=== PATIENT | female | born 1945 | race Caucasian/White ===

== ENCOUNTER 2017-05-19 06:41 | Inpatient (IN) | payer MEDICARE, OTHER ==
[~2017-05-19] VITALS: Ht 167.6 cm; Wt 71.8 kg
--- NOTE | ~2017-05-19 | EC ---
PATIENT:AMARI GARCIA DATE OF SERVICE: 05/19/17 SEX: F MEDICAL RECORD: [id number] DATE OF : [birth year] LOCATION:[facility] AGE OF PATIENT: 71 ADMISSION DATE: 05/19/17 REFERRING PHYSICIAN: INTERPRETING PHYSICIAN: KISHORE MONSIVAIS MD ECHOCARDIOGRAM REPORT ECHO CHARGES 4 ECHO COMPLETE CLINICAL DIAGNOSIS: SYNCOPE ECHOCARDIOGRAPHIC MEASUREMENTS (adult normal given) AC root (d.<3.7cm) 3.0 cm LV Septum d (<1.2 cm> 1.2 cm Valve Excursion 1.5 cm LV Septum (systole) 1.8 cm Left Atria (s.<4.0cm> 3.2 cm LVPW d(<1.2cm) 1.3 cm RV (d.<2.3cm) 3.2 cm LVPW (sytole) 2.2 cm LV diastole(<5.6CM) 5.3 cm MV E-F(>70mm/sec) cm LV systole 2.9 cm LVOT Diameter 1.7 cm MV exc.(>10mm) cm Est.ejection fraction (50-75%) % Pericardial Effusion N DOPPLER: LVIT cm/sec A 75.0 cm/sec E 103 cm/sec LA cm/sec RVSP 36.2 mmHg LVOT 149 cm/sec AOP1/2T m/s Asc. Ao 172 cm/sec RVOT 64.0 cm/sec RA cm/sec PA 93.0 cm/sec AV Gradient Peak 12.0 mmHg AV Mean 6.2 mmHg AV Area 2.0 cm MV Gradient Peak 5.1 mmHg MV Mean 2.1 mmHg MV Area cm COMMENTS: Gun Perforator: 1 BETI MARTINEZ Vp Compliance: Makayla Ballesteros TAPE# PACS DATE OF SERVICE: 05/20/2017 PROCEDURE: Echocardiogram. FINDINGS: 1. Left ventricular chamber size is within normal limits. Left ventricular systolic function is normal. Overall ejection fraction estimated at 60%. 2. Left atrium, right atrium and right ventricular chamber sizes are within normal limits. 3. Valvular structures have normal structure and motion. ECHOCARDIOGRAM REPORT [id number] AMARI GARCIA 4. Doppler interrogation reveals moderate mitral regurgitation, mild to moderate tricuspid regurgitation, no other valvular insufficiency or stenosis. Pulmonary systolic pressure is preserved at 36 mmHg. 5. No evidence of pericardial effusion or left ventricular thrombus. TRANSINT:[id number] Voice Confirmation ID: [id number] DOCUMENT ID: [id number] KISHORE MONSIVAIS MD at 1148 CC: [id number] DICTATION DATE: 05/21/17 0947 PULPWOOD DEALER: 05/21/17 1014 DIS IN 05/21/17 [facility] [address] [place] [address]
--- NOTE | ~2017-05-19 | OP ---
PATIENT NAME: AMARI BARROSO MEDICAL RECORD: [id number] :47 LOCATION:[id number] ADMISSION DATE:05/19/17 SURGEON: LUCIANO ARIAS DO DATE OF OPERATION: 05/19/2017 PROCEDURE PERFORMED: Left ankle open reduction and internal fixation. PREOPERATIVE DIAGNOSIS: Left ankle closed bimalleolar fracture dislocation. POSTOPERATIVE DIAGNOSIS: Left ankle closed bimalleolar fracture dislocation. INDICATIONS: Ms. Barroso is a 71-year-old female who passed out this morning and twisted her ankle somehow, she thinks. She was brought in by EMS due to being afraid that she lost pulse in her foot from the ankle fracture and was seen in the ER. Seen to have an ankle fracture, it was bimalleolar with posterolateral dislocation. Had reduced this in the ER and splinted, and the medial malleolus had been tenting the skin. There was pressure on it, so in order to still get quicker treatment, decided to get her ankle fracture done today to avoid any skin problems. The patient was consented for the procedure, where the risks and benefits included damage to nerves and vessels, she is not sure she has peripheral neuropathy, she said; bleeding; need for further surgery; and infection also. She was informed she will be given antibiotics before and after surgery and we will try to control her pain. SURGEON: Luciano Arias DO. She was given a block in the preoperative area by anesthesia. A gram of vancomycin before the procedure began started to run through her IV. TOURNIQUET TIME: 43 minutes. BLOOD LOSS: Approximately 50 mL. COMPLICATIONS: None. The patient was taken to the operative suite, laid in supine position, given general anesthetic. The left lower extremity was prepped and draped in sterile fashion with the tourniquet under the drapes above the knee. Once this was done, a time-out was performed. Everyone was in agreement of correct side, site, and patient. The incision was then marked over the fibula. Careful dissection was made down after the skin was incised to the fibula itself. The fracture was reduced. Plate was put on and pinned. AP and lateral seemed to get into good position and then a shaft screw was put in to hold the plate in place and then we began to lock screws distally. Once this was locked distally, I put another compression screw in the shaft and removed the prior compression screw and put locking screws up on the most 2 proximal holes. Then, one more locking screw was placed just proximal to the fracture site. After this was done, attention was drawn to the medial malleolus. The ankle was reduced nicely and 2 K-wires were placed up through the medial malleolus tip obliquely through the fracture site. We ended up using two 55 cannulated screws on the medial side. This was Biomet plate and screws. Once they were seen to be in good position, the screws were inserted and then a large clamp was used to clamp the ankle together. Due to the fracture dislocation, I decided to put a ZipTight in. The ankle was clamped together with the ankle dorsiflexed and a drill was drilled across the fibula through the plate across the fibula and tibia and OPERATIVE REPORT [id number] RADHAAMARI angled anteriorly to the tibia. The ZipLock was put in. Once this was done, the ZipTight was cinched down and seemed to hold the fibula in very good position and the ankle was well reduced. This was confirmed in AP, mortise, and lateral x-rays. Then, the tourniquet was let down after 43 minutes. The wounds were irrigated. The lateral side was closed with 2-0 Vicryl in an inverted interrupted fashion and then ZipLine was placed on the skin. The medial side with poke holes where the cannulated screw went was closed with 4-0 Monocryl in a horizontal mattress fashion. Once this was done, the foot was cleaned. The ankle was cleaned and then dried. Adaptic, 4 x 4's, and ABD were put around the heel and around the incisions. Then, a cast padding was used to wrap around that and then Kerlix and another layer of cast padding. Then, a splint was placed posteriorly and 6-inch Aces were used to secure the splint. The knee was flexed and the ankle was brought to neutral flexion and placed there while hardened. The patient was awakened and taken to recovery in stable condition. TRANSINT:[id number] Voice Confirmation ID: [id number] DOCUMENT ID: [id number] LUCIANO ARIAS DO at 1144 CC: [id number] DICTATION DATE: 05/19/17 1306 RESOURCE SPECIALIST TEACHER: 05/19/17 1731 ADM IN [facility] [address] [facility], [facility]
[2017-05-19 07:28] LABS: BASOPHILS 0.2 % (0-2); EOSINOPHILS 1.8 % (0-7); HEMOGLOBIN 10.6 g/dL (12-16); IMMATURE GRANULOCYTES 0.2 % (0-5); LYMPHOCYTES 16.9 % (15-50); MCH 29.4 pg (26.0-34.0); MCHC 32.1 g/dL (31.0-37.0); MCV 91.4 fL (80.0-100.0); MEAN PLATELET VOLUME 9.9 fL (7.4-10.4); MONOCYTES 7.5 % (2-11); NEUTROPHILS 73.4 % (40-80); PLATELET COUNT 241 10x3/uL (130-400); RBC 3.61 10x6/uL (4.00-5.40); RDW 12.9 % (11.5-14.5); WBC 9.4 10x3/uL (4.8-10.8)
[2017-05-19 07:37] LABS: APTT 23.5 SECONDS (22.8-39.4); INR 1.04 (0.85-1.17); PROTIME 13.2 SECONDS (11.6-15.0)
[2017-05-19 07:49] LABS: ALBUMIN 3.4 g/dL (3.4-5.0); BILIRUBIN - TOTAL 0.29 mg/dL (0.2-1.3); CALCIUM 8.4 mg/dL (8.5-10.1); CARBON DIOXIDE 27.1 mmol/L (21.0-32.0); CREATININE - SERUM 1.2 mg/dL (0.6-1.3); POTASSIUM - SERUM 4.1 mmol/L (3.5-5.1); PROTEIN - SERUM 6.3 g/dL (6.4-8.2)
[2017-05-19 09:17] VITALS: BP 100/45; BMI 25.5
[2017-05-19 16:12] VITALS: Ht 167.6 cm; Wt 71.8 kg
[2017-05-19 22:00] VITALS: BP 125/60
[2017-05-20 01:42] VITALS: BP 127/58
[2017-05-20 04:32] LABS: BASOPHILS 0 % (0-2); EOSINOPHILS 0 % (0-7); HEMATOCRIT 30.6 % (36.0-48.0); HEMOGLOBIN 9.9 g/dL (12-16); IMMATURE GRANULOCYTES 0.1 % (0-5); LYMPHOCYTES 7.8 % (15-50); MCH 29.6 pg (26.0-34.0); MCHC 32.4 g/dL (31.0-37.0); MCV 91.6 fL (80.0-100.0); MEAN PLATELET VOLUME 10.1 fL (7.4-10.4); MONOCYTES 4.1 % (2-11); PLATELET COUNT 214 10x3/uL (130-400); RBC 3.34 10x6/uL (4.00-5.40); RDW 13.1 % (11.5-14.5); WBC 8.7 10x3/uL (4.8-10.8)
[2017-05-20] MEDS ORDERED: CYMBALTA60 MG PO (04:39)
[2017-05-20] MEDS ORDERED: NEURONTIN 300300 MG PO (04:40)
[2017-05-20] MEDS ORDERED: REQUIP0.25 MG PO (04:41)
[2017-05-20] MEDS ORDERED: BUPROPION XL150 MG PO (04:42)
[2017-05-20] MEDS ORDERED: PRAVACHOL40 MG PO (04:42)
[2017-05-20] MEDS ORDERED: VITAMIN B-121000 MCG PO (04:44)
[2017-05-20] MEDS ORDERED: VITAMIN D250000 UNIT PO (04:44)
[2017-05-20] MEDS ORDERED: FLOMAX0.4 MG PO (04:46)
[2017-05-20 04:49] LABS: CALCIUM 7.9 mg/dL (8.5-10.1); CARBON DIOXIDE 24.3 mmol/L (21.0-32.0); CHLORIDE - SERUM 108 mmol/L (98-107); GLUCOSE 124 mg/dL (74-106); POTASSIUM - SERUM 4.7 mmol/L (3.5-5.1); SODIUM 140 mmol/L (136-145); eGFR NON AFRICAN AMERICAN 75 mL/min (90-120)
[2017-05-20 04:56] LABS: CALC OSMOLALITY 281 mosm/kg (275-300); CREATININE - SERUM 0.8 mg/dL (0.6-1.3); UREA NITROGEN 17 mg/dL (7-18)
[2017-05-20 05:55] VITALS: BP 133/64
[2017-05-20 08:04] VITALS: BP 133/60
[2017-05-20 12:02] VITALS: BP 135/60
[2017-05-20 15:33] VITALS: BP 123/47
[2017-05-20 21:52] VITALS: BP 124/65
[2017-05-21 00:48] VITALS: BP 136/66
[2017-05-21 05:26] LABS: ANION GAP 11.6 mmol/L (8-16); CALCIUM 7.6 mg/dL (8.5-10.1)
[2017-05-21 05:33] VITALS: BP 150/66
[2017-05-21 05:36] LABS: POTASSIUM - SERUM 3.6 mmol/L (3.5-5.1)
[2017-05-21 05:48] LABS: HEMATOCRIT 27.8 % (36.0-48.0); HEMOGLOBIN 9.4 g/dL (12-16); LYMPHOCYTES 22.5 % (15-50); MCH 30.6 pg (26.0-34.0); MCHC 33.8 g/dL (31.0-37.0); MCV 90.6 fL (80.0-100.0); MEAN PLATELET VOLUME 10.3 fL (7.4-10.4); NEUTROPHILS 68.3 % (40-80); PLATELET COUNT 173 10x3/uL (130-400); RBC 3.07 10x6/uL (4.00-5.40); RDW 12.8 % (11.5-14.5); WBC 9.8 10x3/uL (4.8-10.8)
[2017-05-21] MEDS ORDERED: OXYCODONE HCL5 MG PO (07:23)
[2017-05-21] MEDS ORDERED: HYDROXYZINE HCL50 MG PO (07:23)
[2017-05-21] MEDS ORDERED: ELIQUIS2.5 MG PO (07:23)
[2017-05-21 07:54] VITALS: BP 154/75
[2017-05-21 12:29] LABS: APPEARANCE HAZY (CLEAR); BACTERIA FEW /hpf (NONE SEEN); BILIRUBIN NEGATIVE (NEGATIVE); COLOR YELLOW (YELLOW); GLUCOSE NEGATIVE (NEGATIVE); KETONE NEGATIVE (NEGATIVE); NITRITE NEGATIVE (NEGATIVE); PROTEIN NEGATIVE (NEGATIVE); RED CELLS - URINE OCC /hpf (0-5); SPECIFIC GRAVITY 1.015 (1.005-1.020); UROBILINOGEN NORMAL (NORMAL); WHITE CELLS - URINE 0-5 /hpf (0-5); YEAST <1+ /hpf (NONE SEEN)
== END 2017-05-21 13:28 | disposition home or self-care (01) | DRG 493 ==
LOC: D.ER 06:41 → EDBD 06:41 → D.MS 07:49 → EDBD 07:49 → D.SDCHOLD 05-21 11:28 → D.MS 05-21 11:28
PROVIDERS: Emergency Medicine; Internal Medicine Nephrology; Orthopaedic Surgery
PROC: 0QSH04Z Reposition Left Tibia with Internal Fixation Device, Open Approach (ICD-10-PCS; 2017-05-19)
PROC: 0QSK04Z Reposition Left Fibula with Internal Fixation Device, Open Approach (ICD-10-PCS; principal; 2017-05-19 10:00)
DX: S82.842A Displaced bimalleolar fracture of left lower leg, initial encounter for closed fracture (principal); N17.9 Acute kidney failure, unspecified; W18.30XA Fall on same level, unspecified, initial encounter; I10 Essential (primary) hypertension; E78.5 Hyperlipidemia, unspecified; K58.9 Irritable bowel syndrome, unspecified; M79.7 Fibromyalgia; D64.9 Anemia, unspecified

== ENCOUNTER → 2018-12-23 08:51 | Outpatient (CLI) | payer MEDICARE, OTHER ==
[2017-05-19 16:12] VITALS: BMI 25.5
[~2018-12-23 08:51] MED LIST: BUPROPION XL150 MG PO; CYMBALTA60 MG PO; ELIQUIS2.5 MG PO; FLOMAX0.4 MG PO; HYDROXYZINE HCL50 MG PO; NEURONTIN 300300 MG PO; OXYCODONE HCL5 MG PO; PRAVACHOL40 MG PO; REQUIP0.25 MG PO; VITAMIN B-121000 MCG PO; VITAMIN D250000 UNIT PO
--- NOTE | 2018-12-25 09:14 | EC ---
PATIENT:AMARI GARCIA DATE OF SERVICE: 12/23/18 SEX: F MEDICAL RECORD: [id number] DATE OF : [birth year] LOCATION:D[facility] AGE OF PATIENT: 73 ADMISSION DATE: 12/23/18 REFERRING PHYSICIAN: INTERPRETING PHYSICIAN: KISHORE HUNT MD ECHOCARDIOGRAM REPORT ECHO CHARGES 4 ECHO COMPLETE Date: 12/23/18 CLINICAL DIAGNOSIS: HTN HX OF MITRAL/TRICUSPED REGURG ECHOCARDIOGRAPHIC MEASUREMENTS (adult normal given) AC root (d.<3.7cm) 3.0 cm LV Septum d (<1.2 cm> 1.1 cm Valve Excursion 1.5 cm LV Septum (systole) 1.5 cm Left Atria (s.<4.0cm> 3.6 cm LVPW d(<1.2cm) 1.4 cm RV (d.<2.3cm) 3.5 cm LVPW (sytole) 1.7 cm LV diastole(<5.6CM) 4.7 cm MV E-F(>70mm/sec) cm LV systole 2.8 cm LVOT Diameter 2.0 cm MV exc.(>10mm) 1.7 cm Est.ejection fraction (50-75%) % DOPPLER: LVIT cm/sec A 79.0 cm/sec E 54.0 cm/sec LA cm/sec RVSP 18 mmHg LVOT 110 cm/sec AOP1/2T m/s Asc. Ao 134 cm/sec RVOT 89 cm/sec RA cm/sec PA 133 cm/sec AV Gradient Peak 7.21 mmHg AV Mean 3.92 mmHg AV Area 2.7 cm MV Gradient Peak 4.07 mmHg MV Mean 1.24 mmHg MV Area cm COMMENTS: Brass Buffer: Makayla SINHA Beater Out Leveling Machine: 1 Dr. Hunt TAPE# PACS Pericardial Effusion N DATE OF SERVICE: 12/23/2018 FINDINGS: 1. Left ventricular chamber size is within normal limits. Left ventricular systolic function is normal. Overall ejection fraction estimated at 55%. 2. Left atrium, right atrium, and right ventricular chamber sizes are within normal limits. 3. Valvular structures have normal structure and motion. 4. Doppler interrogation reveals no significant valvular insufficiency or stenosis. Pulmonary systolic pressure is estimated at 18 mmHg. ECHOCARDIOGRAM REPORT [id number] AMARI GARCIA 5. No evidence of pericardial effusion or left ventricular thrombus. TRANSINT:[id number] Voice Confirmation ID: [id number] DOCUMENT ID: [id number] KISHORE HUNT MD at 0914 CC: [id number] DICTATION DATE: 12/23/18 1547 RETAIL LOSS PREVENTION INVESTIGATOR: 12/24/18 0024 DEP CLI 12/23/18 [place] [id number] [place] [id number]
--- NOTE | 2018-12-26 12:08 | ST ---
PATIENT:AMARI GARCIA MEDICAL RECORD: [id number] SEX: F LOCATION:[facility] ORDER #: ADMISSION DATE: 12/23/18 AGE OF PATIENT: 73 REFERRING PHYSICIAN: INTERPRETING PHYSICIAN: KISHORE MONSIVAIS MD DATE OF SERVICE: 12/23/2018 INDICATION: Angina, shortness of breath, hypertension, hyperlipidemia. PROCEDURE: The patient was exercised on standard Lexiscan protocol with 33 mCi of sestamibi injected at peak stress, 11 mCi used previously for rest images. FINDINGS: Gated SPECT reveals preserved ejection fraction at 79% with good wall motion and thickening and brightening throughout all segments. SPECT imaging Cardiolite was used as myocardial fusion agent. There is homogeneous uptake throughout all segments at rest and stress with no evidence of inducible ischemia or previous infarction. OVERALL IMPRESSION: 1. This is a normal nuclear stress test with no evidence of inducible ischemia or previous infarction. 2. Gated SPECT reveals a preserved ejection fraction at 79%. In this patient with ongoing symptomatology, the current scan does not suggest the presence of hemodynamically significant coronary artery disease. Evaluate noncardiac etiology of chest pain. TRANSINT:[id number] Voice Confirmation ID: [id number] DOCUMENT ID: [id number] CC: DR. JACQUE DALE, KISHORE MONSIVAIS MD at 1208 CC: DR. JACQUE DALE [id number] DICTATION DATE: 12/25/18 1323 TELESALES SUPERVISOR: 12/26/18 0744 DEP CLI 12/23/[address] [id number]
== END | disposition home or self-care (01) ==
LOC: D.HCCARDIO 08:51 → D.HCCECHO 14:30
PROVIDERS: ATTEND Internal Medicine Interventional Cardiology
DX: I10 Essential (primary) hypertension (principal)